=== PATIENT | female | born 1950 | race Asian ===

== ENCOUNTER 2019-06-02 12:34 | Emergency (ER) | payer OTHER ==
[~2019-06-02] VITALS: Ht 170.2 cm; Wt 54.4 kg
[2019-06-02 12:34] VITALS: Ht 170.2 cm; Wt 54.4 kg
[2019-06-02 14:19] VITALS: BP 134/68
== END 2019-06-02 14:19 | disposition home or self-care (01) ==
LOC: ED 12:34
DX: S63.611A Unspecified sprain of left index finger, initial encounter (principal); W23.0XXA Caught, crushed, jammed, or pinched between moving objects, initial encounter; Y93.89 Activity, other specified; Y92.89 Other specified places as the place of occurrence of the external cause; Y99.8 Other external cause status
CPT/HCPCS: A4570